=== PATIENT | male | born 1935 | race Caucasian/White ===

== ENCOUNTER → 2017-10-23 | Outpatient (CLI) | payer MEDICARE | END | disposition home or self-care (01) | LOC: CVU 11:10 | PROVIDERS: ATTEND Internal Medicine | DX: I35.1 Nonrheumatic aortic (valve) insufficiency (principal); I35.8 Other nonrheumatic aortic valve disorders; I65.23 Occlusion and stenosis of bilateral carotid arteries; I10 Essential (primary) hypertension; Z86.73 Personal history of transient ischemic attack (TIA), and cerebral infarction without residual deficits | CPT/HCPCS: 93306; 93880 ==

== ENCOUNTER 2018-06-01 11:50 | Emergency (ER) | payer MEDICARE ==
[~2018-06-01] VITALS: Ht 175.3 cm; Wt 74.7 kg
--- NOTE | 2018-06-01 12:50 | NUR ---
Pt to T2 from lobby
--- NOTE | 2018-06-01 13:10 | NUR ---
UNABLE TO EAT OR DRINK YESTERDAY, HISTORY OF ESOPHAGEAL STRICTURE WHICH REWURE PERIODIC DIALATION, SENT BY GI MD WHO REPORTS HE NEEDS DIALATION AGAIN- REPORTS GLUCAGON NOT EFFECTIVE.
--- NOTE | 2018-06-01 13:47 | NUR ---
ASSUMED CARE OF PT WHILE PRIMARY RN AT LUNCH. DR. MONAE COLE MD AT BEDSIDE.
[2018-06-01] MEDS ORDERED: PROPOFOL 10 MG/ML, 20ML ONE (13:59)
[2018-06-01] MEDS ORDERED: SODIUM CHLORIDE FLUSH 10ML SYR IVF ONE (14:00)
--- NOTE | 2018-06-01 14:12 | NUR ---
consent was signed for egd for removal of foreign body by procedural sedtion. endoscope rn at bedside and ed md at bedside. see procedural sedation notes
--- NOTE | 2018-06-01 14:20 | NUR ---
REPORT FROM ENDOSCOPY TEAM RECEIVED. TOTAL OF 150MG OF PROPOFOL USED/BIOPSIES OBTAINED (MAY HAVE SOME TINGED SPUTUM). NO REPORTED COMPLICATIONS PATIENT AWAKE/ORIENTED. PROTECTING OWN AIRWAY ON 2L NC VSS ON MONITOR. WILL CONTINUE TO CLOSELY MONITOR
[2018-06-01] MEDS ORDERED: PROPOFOL 10 MG/ML, 20ML IVPush ONE (14:30)
--- NOTE | 2018-06-01 14:50 | NUR ---
ATTEMPED TO COMPLETE MED RECC. MED PROFILE LOCK BY DR. LICONA. WILL ATTEMPT AGAIN SHORTLY
[2018-06-01] MEDS ORDERED: PANT40TA5 PO (15:06)
[2018-06-01] MEDS ORDERED: LOSA100T14 PO (15:06)
[2018-06-01] MEDS ORDERED: FINA5TAB4 PO (15:06)
[2018-06-01] MEDS ORDERED: LABE200T6 PO (15:06)
[2018-06-01] MEDS ORDERED: DOXA4TAB3 PO (15:06)
--- NOTE | 2018-06-01 15:25 | NUR ---
VSS ON ROOM AIR. WALKING HALLS W/OUT DIFFICULTY TAKING WATER (AFTER PERMISSION FROM PROVIDER) W/OUT DIFFICULTY. PROVIDER TO BEDSIDE. PLAN TO DISCHARGE SHORTLY PATIENT EDUCATED THAT HE IS TO STICK TO LIQUID DIET AND INCREASE PROTONIX TO BID. PATIENT AGREEABLE PATIENT REPORT "I FEEL I WAS ABLE TO SWALLOW IT W/ NO DIFFICULTY.
--- NOTE | 2018-06-01 16:40 | NUR ---
D/C ORDER OBTAINED FROM PROVIDER WITH DISCHARGE ASSESSMENT PATIENT NOTED TO HAVE CONTINUED HYPERTENSION-PATIENT UNABLE TO TAKE MEDICATIONS FOR 2 DAYS. PLAN TO TAKE MEDICATIONS ONCE HE GETS HOME UNABLE TO OBTAIN RIDE HOME SO PATIENT PROVIDED W/ [employer] AND [email or web address] DISCOUNT COUPON.
[2018-06-01 16:43] VITALS: BP 165/100
== END 2018-06-01 17:09 | disposition home or self-care (01) ==
LOC: ED 14:28
DX: T18.128A Food in esophagus causing other injury, initial encounter (principal); X58.XXXA Exposure to other specified factors, initial encounter; Y93.89 Activity, other specified; Y92.89 Other specified places as the place of occurrence of the external cause; Y99.8 Other external cause status
CPT/HCPCS: 43247; 88305; 99152; 99285; J2704

== ENCOUNTER 2019-10-15 12:38 | Emergency (ER) | payer MEDICARE ==
[~2019-10-15] VITALS: Ht 175.3 cm; Wt 60.8 kg
[~2019-10-15 12:38] MED LIST: DOXA4TAB3 PO; FINA5TAB4 PO; LABE200T6 PO; LOSA100T14 PO; PANT40TA5 PO
--- NOTE | 2019-10-15 13:00 | NUR ---
PT BIB EMS FROM [facility] FO ALTERED MENTAL STATUS. PT IS BEING TREATED FOR BACTEREMIA AND SEIZURES. PER EMS PT WAS THOUGHT TO HAVE A SEIZURE AT SNF. PT WAS A&OX3 ON ARRIVAL. LICENSED PRACTICAL NURSE CLINIC NURSE PLACED, PT NOT IN DITRESS. DENIES CP, SOB, COUGH.
[2019-10-15 13:20] LABS: ALANINE AMINOTRANSFERASE 32 U/L (12-78); ALBUMIN 2.4 g/dL (3.4-5.0); ANION GAP 4 mmol/L (5-15); CALCIUM 8.4 mg/dL (8.5-10.1); CHLORIDE 109 mmol/L (98-107); CREATININE 1.02 mg/dL (0.7-1.3)
[2019-10-15 13:23] LABS: ALKALINE PHOSPHATASE 128 U/L (45-117); BILIRUBIN,TOTAL 0.4 mg/dL (0.2-1.0); TOTAL PROTEIN 6.4 g/dL (6.4-8.2)
[2019-10-15] MEDS ORDERED: SODIUM CHLORIDE 0.9% 1,000ML IVBOLUS ONE (13:30)
[2019-10-15] MEDS ORDERED: LIDOCAINE 2%,20 ML JEL.PF.APP MM ONE (13:44)
--- NOTE | 2019-10-15 14:00 | NUR ---
URINE CATH DONE, URINE WALKED TO LAB. TOLERATED WELL
[2019-10-15 14:02] LABS: BASOPHILS # (AUTO) 0.02 x10^3/uL (0-0.1); BASOPHILS % (AUTO) 0 % (0-1); EOSINOPHILS # (AUTO) 0.14 x10^3/uL (0-0.4); EOSINOPHILS % (AUTO) 2 % (1-7); LYMPHOCYTES # (AUTO) 0.56 x10^3/uL (1-3.4); LYMPHOCYTES % (AUTO) 8 % (22-44); MD NO; MEAN CORPUSCULAR HEMOGLOBIN 29.1 pg (27.5-34.5); MEAN CORPUSCULAR HGB CONC 32.9 g/dL (33.2-36.2); MEAN CORPUSCULAR VOLUME 88.6 fL (81-97); MEAN PLATELET VOLUME 7.8 fL (7.4-10.4); MONOCYTES # (AUTO) 0.63 x10^3/uL (0.2-0.8); MONOCYTES % (AUTO) 9 % (2-9); NEUTROPHILS # (AUTO) 5.92 x10^3/uL (1.8-6.8); NEUTROPHILS % (AUTO) 82 % (42-75); PLATELET COUNT 326 x10^3/uL (130-400); RED BLOOD COUNT 4.55 x10^6/uL (4.38-5.82); RED CELL DISTRIBUTION WIDTH 14.1 % (9.4-14.8)
[2019-10-15 14:12] VITALS: BP 129/72
[2019-10-15 14:16] LABS: MICROSCOPIC AUTO
--- NOTE | 2019-10-15 14:49 | NUR ---
RN CALLED , LEFT VOICEMAIL
--- NOTE | 2019-10-15 15:16 | NUR ---
REPOSITONED AND CHANGED GOWN/LINENS. GAVE WATER. NO ISSUES W SWALLOWING
--- NOTE | 2019-10-15 16:00 | NUR ---
PT TRANSFERRED TO WHEEL CHAIR FOR [facility]. PT DRESSED, READY FOR TRANSFER
--- NOTE | 2019-10-15 16:32 | NUR ---
Patient given discharge instructions and they have confirmed that they understand the instructions. Patient dc w [facility] in wheelchair. Report called to Sulema at [facility]
== END 2019-10-15 16:34 | disposition short-term general hospital (02) ==
LOC: ED 15:40
DX: R56.9 Unspecified convulsions (principal); R53.1 Weakness; R41.82 Altered mental status, unspecified; R06.9 Unspecified abnormalities of breathing; I10 Essential (primary) hypertension; Z86.73 Personal history of transient ischemic attack (TIA), and cerebral infarction without residual deficits
CPT/HCPCS: 36415; 70450; 71045; 80053; 81001; 83605; 84145; 85025; 87040; 87086; 93005; 96360; 96361; 99285; J7030